=== PATIENT | male | born 1985 | race Two or more races ===

== ENCOUNTER 2023-12-16 14:55 | Emergency (ER) | payer OTHER ==
[~2023-12-16] VITALS: Ht 180.3 cm; Wt 115.7 kg
[2023-12-16] MEDS ORDERED: ZYRTEC10 M3 PO (15:10)
[2023-12-16] MEDS ORDERED: ACID REDUCER20 M1 PO (15:10)
== END 2023-12-16 18:26 | disposition home or self-care (01) ==
LOC: ER 14:56
DX: M79.641 Pain in right hand (principal); T14.90XA Injury, unspecified, initial encounter; X58.XXXA Exposure to other specified factors, initial encounter; Y93.9 Activity, unspecified; Y92.9 Unspecified place or not applicable; Y99.9 Unspecified external cause status